=== PATIENT | male | born 2000 | race African-American/Black ===

== ENCOUNTER 2022-01-31 17:16 | Emergency (ER) | payer MEDICAID ==
[~2022-01-31] VITALS: Ht 180.3 cm; Wt 82.0 kg
[2022-01-31 17:27] VITALS: BP 151/73
[2022-01-31] MEDS ORDERED: TETANUS, DIPHTHERIA, PERTUSSIS VAC/PF 0.5ML (>10YR OLD) IM ONE ×2 (19:00→20:45)
[2022-01-31] MEDS ORDERED: BACITRACIN 15GM TUBE TOP ONE (19:00)
== END 2022-01-31 21:03 | disposition home or self-care (01) ==
LOC: ER 17:16
DX: S60.511A Abrasion of right hand, initial encounter (principal); S60.512A Abrasion of left hand, initial encounter; S50.312A Abrasion of left elbow, initial encounter; V27.01XA Electric (assisted) bicycle driver injured in collision with fixed or stationary object in nontraffic accident, initial encounter; Y93.55 Activity, bike riding; Y92.488 Other paved roadways as the place of occurrence of the external cause
CPT/HCPCS: 73080; 73120; 90471; 90715; 99284; Z7610

== ENCOUNTER 2022-05-02 15:09 | Emergency (ER) | payer MEDICAID ==
[~2022-05-02] VITALS: Ht 180.3 cm; Wt 82.0 kg
[2022-05-02 15:34] VITALS: BP 166/101
[2022-05-02 19:12] LABS: CLARITY URINE CLEAR (CLEAR); COLOR URINE YELLOW (YELLOW); KETONES URINE NEGATIVE (NEGATIVE); LEUKOCYTE ESTERASE URINE NEGATIVE (NEGATIVE); NITRITE URINE NEGATIVE (NEGATIVE); OCCULT BLOOD URINE NEGATIVE (NEGATIVE); PH URINE 6.5 (4.5-8.0); PROTEIN URINE NEGATIVE (NEGATIVE); SPECIFIC GRAVITY URINE 1.022 (1.005-1.030); UROBILINOGEN URINE 0.2 E.U./dL (0.2-1.0)
== END 2022-05-02 19:33 | disposition home or self-care (01) ==
LOC: ER 15:09
DX: R31.9 Hematuria, unspecified (principal)
CPT/HCPCS: 81003; 99283

== ENCOUNTER 2023-02-19 16:15 | Emergency (ER) | payer MEDICAID ==
[~2023-02-19] VITALS: Ht 177.8 cm; Wt 72.0 kg
[2023-02-19 16:19] VITALS: PULSE 80; RESP 18
[2023-02-19 16:21] VITALS: BP 139/88; TEMP 98.4; O2SAT 99
[2023-02-19 17:10] LABS: CLARITY URINE CLEAR (CLEAR); COLOR URINE YELLOW (YELLOW); GLUCOSE URINE NEGATIVE (NEGATIVE); KETONES URINE NEGATIVE (NEGATIVE); LEUKOCYTE ESTERASE URINE NEGATIVE (NEGATIVE); NITRITE URINE NEGATIVE (NEGATIVE); OCCULT BLOOD URINE NEGATIVE (NEGATIVE); PROTEIN URINE NEGATIVE (NEGATIVE); SPECIFIC GRAVITY URINE 1.017 (1.005-1.030)
== END 2023-02-19 18:45 | disposition home or self-care (01) ==
LOC: ER 16:25
DX: R35.0 Frequency of micturition (principal)
CPT/HCPCS: 81003; 82962; 99283

== ENCOUNTER 2023-03-08 12:02 | Emergency (ER) | payer MEDICAID ==
[~2023-03-08] VITALS: Ht 177.8 cm; Wt 82.0 kg
[2023-03-08 12:13] VITALS: BP 143/97; PULSE 94; RESP 18; TEMP 98.5; O2SAT 98
[2023-03-08 13:23] LABS: CLARITY URINE CLEAR (CLEAR); COLOR URINE YELLOW (YELLOW); GLUCOSE URINE NEGATIVE (NEGATIVE); KETONES URINE NEGATIVE (NEGATIVE); LEUKOCYTE ESTERASE URINE NEGATIVE (NEGATIVE); NITRITE URINE NEGATIVE (NEGATIVE); OCCULT BLOOD URINE NEGATIVE (NEGATIVE); PH URINE 7.5 (4.5-8.0); PROTEIN URINE NEGATIVE (NEGATIVE); SPECIFIC GRAVITY URINE 1.016 (1.005-1.030)
[2023-03-08 14:48] LABS: BASOPHILS % 1.2 % (0.0-2.0); EOSINOPHILS % 1.4 % (0.0-5.0); HEMATOCRIT. 46.6 % (42.0-52.0); HEMOGLOBIN. 15.1 g/dL (14.0-18.0); LYMPHOCYTES % 37.1 % (20.0-50.0); MEAN CORPUSCULAR HEMOGLOBIN 28.1 pg (28.0-32.0); MEAN CORPUSCULAR HGB CONC 32.3 g/dL (31.0-37.0); MEAN CORPUSCULAR VOLUME 86.9 fL (80.0-94.0); MEAN PLATELET VOLUME 8.7 fl (7.4-10.4); MONOCYTES % 11.2 % (2.0-8.0); NEUTROPHILS % 49.1 % (40.0-76.0); PLATELET 227 x1000/uL (130-400); RED BLOOD CELL COUNT 5.37 mill/uL (4.7-6.1); RED CELL DISTRIBUTION WIDTH 13.9 % (11.6-14.6); WHITE BLOOD COUNT 6.3 x1000/uL (4.5-11.0)
[2023-03-08 15:03] LABS: ALANINE AMINOTRANSFERASE 14 IU/L (10-49); ASPARTATE AMINOTRANSFERASE 22 IU/L (<34); BILIRUBIN TOTAL 1.4 mg/dL (0.1-1.0); CARBON DIOXIDE 29 mEq/L (21-32); CHLORIDE 105 mEq/L (98-107); CREATININE 1.1 mg/dL (0.6-1.3); GLUCOSE 80 mg/dL (70-105); POTASSIUM 4.5 mEq/L (3.5-5.1); PROTEIN TOTAL 7.9 g/dL (6.0-8.3); SODIUM 141 mEq/L (136-145); UREA NITROGEN BLOOD 10 mg/dL (9-23)
== END 2023-03-08 15:55 | disposition home or self-care (01) ==
LOC: ER 12:11
DX: R35.89 Other polyuria (principal)
CPT/HCPCS: 36415; 80053; 81003; 82962; 85025; 99283

== ENCOUNTER 2023-08-31 16:44 | Emergency (ER) | payer MEDICAID ==
[~2023-08-31] VITALS: Ht 182.9 cm; Wt 91.0 kg
[2023-08-31 17:10] VITALS: BP 166/94; PULSE 84; RESP 18; TEMP 98.5; O2SAT 98
== END 2023-08-31 18:00 | disposition left against medical advice (07) ==
LOC: ER 16:44
DX: Z53.21 Procedure and treatment not carried out due to patient leaving prior to being seen by health care provider (principal)
CPT/HCPCS: Z7610 ×2